=== PATIENT | female | born 1975 | race Caucasian/White ===

== ENCOUNTER → 2017-01-16 | Outpatient (CLI) | payer MEDICARE ==
[~2017-01-16] MED LIST: ASPIR-TRIN325 MG PO; DOSS PO; IBUPROFEN800 MG PO; LEXAPRO20 MG PO; PERCOCET 7.5-31 EACH PO; PRILOSEC OTC20 MG PO; PROTONIX40 MG PO; PROVENTIL HFA 61 INH INH; TRAZODONE HCL50 MG PO; ZOFRAN4 MG PO
== END ==
LOC: EDBD 21:30 → SLEEP 21:30
DX: G47.33 Obstructive sleep apnea (adult) (pediatric) (principal)
CPT/HCPCS: 95810